=== PATIENT | female | born 1955 | race Caucasian/White ===

== ENCOUNTER → 2018-08-01 | Outpatient (CLI) | payer OTHER ==
[~2018-08-01] MED LIST: FLUOXETINE HCL60 MG PO; OMEPRAZOLE 20 M20 M1 PO; WELLBUTRIN XL150 MG PO
--- NOTE | ~2018-08-01 | EKG ---
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
== END | disposition home or self-care (01) ==
LOC: LITH 14:00
DX: N20.1 Calculus of ureter (principal); E78.00 Pure hypercholesterolemia, unspecified; K21.9 Gastro-esophageal reflux disease without esophagitis; Z79.899 Other long term (current) drug therapy

== ENCOUNTER → 2018-12-05 | Outpatient (CLI) | payer OTHER ==
[~2018-12-05] MED LIST changes: +LIPITOR 20 MG T20 M1 PO
== END | disposition home or self-care (01) ==
LOC: LITH 12:39
DX: N20.0 Calculus of kidney (principal); E78.00 Pure hypercholesterolemia, unspecified; K21.9 Gastro-esophageal reflux disease without esophagitis; F32.9 Major depressive disorder, single episode, unspecified; F41.9 Anxiety disorder, unspecified; Z87.442 Personal history of urinary calculi; Z79.899 Other long term (current) drug therapy; Z98.890 Other specified postprocedural states